=== PATIENT | female | born 1975 | race Caucasian/White ===

== ENCOUNTER 2017-05-05 14:57 | Emergency (ER) | payer OTHER ==
[~2017-05-05] VITALS: Ht 165.1 cm; Wt 97.0 kg
[2017-05-05 14:59] VITALS: BP 146/88; PULSE 114; RESP 18; TEMP 99.5; O2SAT 95
[2017-05-05] MEDS ORDERED: METH2.5T PO (15:39)
[2017-05-05] MEDS ORDERED: ARAV10TA PO (15:39)
[2017-05-05] MEDS ORDERED: CYMB30CA PO (15:39)
[2017-05-05] MEDS ORDERED: PRED10 PO (15:39)
[2017-05-05] MEDS ORDERED: TOFA1TAB PO (15:39)
[2017-05-05] MEDS ORDERED: LISI10TA3 PO (15:39)
[2017-05-05] MEDS ORDERED: RANI150T PO (15:39)
--- NOTE | 2017-05-05 15:54 | PD ---
HPI Chief Complaint: Hypertension Time Seen by Provider: 15:31 Travel History International Travel<30 days: No Contact w/Intl Traveler<30days: No Traveled to known affect area: No History of Present Illness HPI 41-year-old female complains of intermittent headaches, nausea, palpitation and elevated blood pressure. Patient has history rheumatoid arthritis and on medication for that. Patient has been seen by youtuber. Patient noticed her blood pressures elevated recently. Systolic blood pressure was reported in the 160s range recently. Patient contact her physician. Patient was given prescription for lisinopril 10 mg daily which she started yesterday. Patient states that she started having intermittent headache and nausea for last 2 days. Patient also complained palpitation for the past week or so. Patient denies any visual change. Patient denies any neck pain. Patient denies any chest pain or shortness of breath. Patient denies abdominal pain. Patient denies any focal weakness or numbness of extremity. Patient denies any fever chills. Patient denies any coughing congestion. PFSH Past Medical History Arthritis: Yes (ra) Influenza Vaccination: No ?: Not LMP: UTERINE ABLATION X 2 YEARS AGO Past Surgical History Surgical History: No Previous Surgery Social History Alcohol Use: No Tobacco Use: No Substance Use: No Allergies-Medications (Allergen,Severity, Reaction): Coded Allergies: erythromycin base (Verified Allergy, Intermediate, RASH, 05/05/17) Reported Meds & Prescriptions Reported Meds & Active Scripts Active Reported Cymbalta DR (Duloxetine HCl) 30 Mg Capdr Unknown Dose PO DAILY Lisinopril 10 Mg Tab 10 Mg PO HS Ranitidine (Ranitidine HCl) 150 Mg Tab 150 Mg PO DAILY Prednisone 10 Mg Tab 10 Mg PO DAILY Xeljanz Xr (Tofacitinib ER) 11 Mg Tab 11 Mg PO DAILY Arava (Leflunomide) 10 Mg Tab 10 Mg PO DAILY Methotrexate 2.5 Mg Tab 15 Mg PO Q7D Review of Systems General / Constitutional: No: Fever Eyes: No: Visual changes HENT: Positive: Headaches Cardiovascular: Positive: Palpitations, No: Chest Pain or Discomfort Respiratory: No: Shortness of Breath Gastrointestinal: Positive: Nausea, No: Abdominal Pain Genitourinary: No: Dysuria Musculoskeletal: No: Pain Skin: No Rash Neurologic: No: Weakness Psychiatric: No: Depression Endocrine: No: Polydipsia Hematologic/Lymphatic: No: Easy Bruising Physical Exam Narrative GENERAL: Well-nourished, well-developed patient. SKIN: Focused skin assessment warm/dry. HEAD: Normocephalic. EYES: No scleral icterus. No injection or drainage. NECK: Supple, trachea midline. No JVD or lymphadenopathy. CARDIOVASCULAR: Regular rate and rhythm without murmurs, gallops, or rubs. RESPIRATORY: Breath sounds equal bilaterally. No accessory muscle use. GASTROINTESTINAL: Abdomen soft, non-tender, nondistended. MUSCULOSKELETAL: No cyanosis, or edema. BACK: Nontender without obvious deformity. No CVA tenderness. Neurologic exam normal. Data Data Last Documented VS Vital Signs Date Time Temp Pulse Resp B/P (MAP) Pulse Ox O2 Delivery O2 Flow Rate FiO2 05/05/17 14:59 99.5 114 18 146/88 (107) 95 MDM Medical Decision Making Medical Screen Exam Complete: Yes Emergency Medical Condition: Yes Differential Diagnosis Differential diagnoses including viral syndrome, tension headache, cluster headache, migraine headache, uncontrolled hypertension. Narrative Course 41-year-old female with history hypertension, intermittent headache and nausea for the past 2 days palpitation. Heart rates in the 90s in the ED. Systolic blood pressures in the 140s. Patient is asymptomatic now. Physical exam benign. Diagnosis Primary Impression: Hypertension Qualified Codes: I10 - Essential (primary) hypertension Additional Impression: Viral syndrome Patient Instructions: General Instructions Additional Instructions: Continue with medications as directed. Follow-up with personal physician. Tylenol for headache. Return if worse. Med/Other Pt SpecificInfo: No Change to Meds Disposition: 01 DISCHARGE HOME Condition: Stable Demetrio Rao MD May 05, 2017 15:54
== END 2017-05-05 16:12 | disposition home or self-care (01) ==
LOC: PHED 14:57
DX: I10 Essential (primary) hypertension (principal); B34.9 Viral infection, unspecified; R51 Headache; R11.0 Nausea; R00.2 Palpitations; M06.9 Rheumatoid arthritis, unspecified
CPT/HCPCS: 99282